=== PATIENT | female | born 1945 | race Caucasian/White ===

== ENCOUNTER 2016-06-06 10:36 | Emergency (ER) | END 2016-06-06 12:56 | disposition home or self-care (01) | DX: R05 Cough (principal); E03.9 Hypothyroidism, unspecified ==

== ENCOUNTER 2017-01-19 22:26 | Emergency (ER) | payer MEDICARE, OTHER ==
[~2017-01-19] VITALS: Wt 58.0 kg
[~2017-01-19 22:26] MED LIST: ACET1TAB40 PO; AMP500 PO; ASPI-664 PO; ATEN-51 PO; ATOR10TA65 PO; BENZ100C70 PO; D-ME473S18 PO; IBUP800T25 PO; LEVO50TA74 PO; LINA145C PO; OMEP20CA16 PO
[2017-01-19 22:37] VITALS: Wt 58.0 kg
--- NOTE | 2017-01-19 23:27 | ERA ---
ER Documentation Chief Complaint Date/Time DATE: 01/19/17 TIME: 23:26 Chief Complaint Reflux HPI The patient is a 71-year-old female, presenting complaining of gastroesophageal reflux disease. She is taking omeprazole with some response however it is worse tonight. She had similar symptoms previously, denies fever, chills, cough , chest pain, dyspnea, abdominal pain, vomiting, dysuria. She does not smoke nor drink Past medical history: Hypertension, dyslipidemia, hypothyroidism, TIA, GERD Past surgical history: Hysterectomy, carpal tunnel surgery, 2 ROS All systems reviewed and are negative except as per history of present illness. Medications Home Meds Active Scripts Dextromethorphan Hb-Promethazine Hcl (Promethazine DM Syrup) 473 Ml Syrup, 5 ML PO Q6H Y for COUGH, #4 OZ Prov:SIDNEY BARKLEY PA-C 06/06/16 Benzonatate* (Tessalon Perle*) 100 Mg Capsule, 100 MG PO TID, #30 CAP Prov:SIDNEY BARKLEY PA-C 06/06/16 Reported Medications Ampicillin* (Ampicillin*) 500 Mg Cap, 500 MG PO Q6, CAP STARTED 12/07/15 FOR 10 DAYS 12/14/15 Atenolol* (Atenolol*) 25 Mg Tablet, 25 MG PO DAILY, #30 TAB 12/14/15 Ibuprofen* (Motrin*) 800 Mg Tab, 800 MG PO TID, TAB 12/14/15 Linaclotide (LINZESS) 145 Mcg Capsule, 145 MCG PO DAILY, #30 CAP 12/14/15 Atorvastatin Calcium (Atorvastatin Calcium) 10 Mg Tablet, 10 MG PO QHS, #30 TAB 12/14/15 Acetaminophen-Codeine* (Acetaminophen-Cod #3*) 300-30 Mg Tab, 1 TAB PO Q6 Y for PAIN, #30 TAB 12/14/15 Omeprazole* (Omeprazole*) 20 Mg Capsule.dr, 20 MG PO DAILY, CAP 02/10/15 Levothyroxine Sodium* (Levothyroxine Sodium*) 50 Mcg Tablet, 50 MCG PO AC BREAKFAST, TAB 02/10/15 Aspirin* (Aspirin* EC) 81 Mg Tablet.dr, 81 MG PO DAILY, TAB 02/10/15 Allergies Allergies: Coded Allergies: No Known Allergy (Verified , 06/06/16) PMhx/Soc History of Surgery: Yes (hysterectomy 10/2015, carpal tunnel surgery, left cataract removal ) Anesthesia Reaction: No Hx Neurological Disorder: No Hx Respiratory Disorders: No Hx Cardiac Disorders: No Hx Psychiatric Problems: No Hx Miscellaneous Medical Probl: Yes (HYPERLIPIDEMIA, hypothyroid, TIA) Hx Alcohol Use: No Hx Substance Use: No Hx Tobacco Use: No Physical Exam Vitals Vital Signs Date Time Temp Pulse Resp B/P Pulse Ox O2 Delivery O2 Flow Rate FiO2 01/19/17 23:43 98.2 94 16 130/81 98 Room Air 01/19/17 22:37 97.7 67 20 136/73 98 Physical Exam Const: No acute distress. Head: Atraumatic. Eyes: Normal Conjunctiva. ENT: Normal External Ears, Nose and Mouth. Neck: Full range of motion. No meningismus. Resp: Clear to auscultation bilaterally. Cardio: Regular rate and rhythm. Abd: Soft, non distended, normal bowel sounds, non tender. Skin: No petechiae or rashes. Back: No midline or flank tenderness. Ext: No cyanosis, or edema. Neur: Awake and alert. No focal deficit Psych: Normal Mood and Affect. Procedures/MDM EKG: Read by emergency physician Rate/Rhythm: Sinus tachycardia at 102 beats/min QRS, ST, T-waves: No ST elevation, no T inversion Impression: Abnormal EKG MEDICAL MAKING DECISION: The patient is a 71-year-old female, presenting with chronic GERD. She denies any chest pain or dyspnea., she was advised to increase her omeprazole to twice a day for 1 week The differential diagnoses considered include but are not limited to acute coronary syndrome, acute myocardial infarction, pericarditis, pulmonary embolism , aortic dissection, pneumonia, pleural effusion, pneumothorax, GERD, chest wall pain. Departure Diagnosis: Primary Impression: GERD (gastroesophageal reflux disease) Condition: Good Comments I discussed the findings with the patient. I advised the patient to follow-up with the primary physician in about 1-2 days, sooner if needed and return if any concern. ROSAS HERNANDEZ MD Jan 19, 2017 23:27
[2017-01-19 23:43] VITALS: BP 130/81; PULSE 94; RESP 16; TEMP 98.2
== END 2017-01-19 23:52 | disposition home or self-care (01) ==
LOC: E/R 22:26
DX: K21.9 Gastro-esophageal reflux disease without esophagitis (principal); I10 Essential (primary) hypertension; E03.9 Hypothyroidism, unspecified; R40.2142 Coma scale, eyes open, spontaneous, at arrival to emergency department; R40.2362 Coma scale, best motor response, obeys commands, at arrival to emergency department; Z79.82 Long term (current) use of aspirin
CPT/HCPCS: 93005; 99282

== ENCOUNTER 2017-03-30 14:14 | Emergency (ER) | payer MEDICARE, OTHER ==
[~2017-03-30] VITALS: Ht 152.4 cm; Wt 57.3 kg
[~2017-03-30 14:14] MED LIST changes: -AMP500 PO; +AMPI500C9 PO
[2017-03-30 14:24] VITALS: Ht 152.4 cm; Wt 57.3 kg
--- NOTE | 2017-03-30 15:23 | ERD ---
ER Documentation Chief Complaint Chief Complaint Complains of a severe headache x 3 days HPI 71-year-old complains of headache 2-3 days with, cough, nasal congestion, chest congestion, dizziness and generalized weakness. She denies abdominal pain , no chest pain or shortness of breath, no weakness in her arms or legs, no slurred speech, no vomiting or diarrhea. Patient denies dysuria. ROS All systems reviewed and are negative except as per history of present illness. Medications Home Meds Active Scripts Naproxen* (Naprosyn*) 500 Mg Tablet, 500 MG PO BID Y for PAIN AND/OR INFLAMMATION, #30 TAB Prov:GENARO SPICER MD 03/30/17 Albuterol Sulfate* (Proair HFA*) 8.5 Gm Hfa.aer.ad, 2 PUFF INH Q6H Y for COUGH, #1 INHALER Prov:GENARO SPICER MD 03/30/17 Dextromethorphan Hb-Promethazine Hcl (Promethazine DM Syrup) 473 Ml Syrup, 5 ML PO Q6H Y for COUGH, #4 OZ Prov:SIDNEY BARKLEY PA-C 06/06/16 Benzonatate* (Tessalon Perle*) 100 Mg Capsule, 100 MG PO TID, #30 CAP Prov:SIDNEY BARKLEY PA-C 06/06/16 Reported Medications Ampicillin* (Ampicillin*) 500 Mg Cap, 500 MG PO Q6, CAP STARTED 12/07/15 FOR 10 DAYS 12/14/15 Atenolol* (Atenolol*) 25 Mg Tablet, 25 MG PO DAILY, #30 TAB 12/14/15 Ibuprofen* (Motrin*) 800 Mg Tab, 800 MG PO TID, TAB 12/14/15 Linaclotide (LINZESS) 145 Mcg Capsule, 145 MCG PO DAILY, #30 CAP 12/14/15 Atorvastatin Calcium (Atorvastatin Calcium) 10 Mg Tablet, 10 MG PO QHS, #30 TAB 12/14/15 Acetaminophen-Codeine* (Acetaminophen-Cod #3*) 300-30 Mg Tab, 1 TAB PO Q6 Y for PAIN, #30 TAB 12/14/15 Omeprazole* (Omeprazole*) 20 Mg Capsule.dr, 20 MG PO DAILY, CAP 02/10/15 Levothyroxine Sodium* (Levothyroxine Sodium*) 50 Mcg Tablet, 50 MCG PO AC BREAKFAST, TAB 02/10/15 Aspirin* (Aspirin* EC) 81 Mg Tablet.dr, 81 MG PO DAILY, TAB 02/10/15 Allergies Allergies: Coded Allergies: No Known Allergy (Verified , 06/06/16) PMhx/Soc Hypertension, dyslipidemia, hypothyroidism, TIA, GERD History of Surgery: Yes (hysterectomy 10/2015, carpal tunnel surgery, left cataract removal ) Anesthesia Reaction: No Hx Neurological Disorder: No Hx Respiratory Disorders: No Hx Cardiac Disorders: No Hx Psychiatric Problems: No Hx Miscellaneous Medical Probl: Yes (HYPERLIPIDEMIA, hypothyroid, TIA) Hx Alcohol Use: No Hx Substance Use: No Hx Tobacco Use: No FmHx Family History: No diabetes Physical Exam Vitals Vital Signs Date Time Temp Pulse Resp B/P Pulse Ox O2 Delivery O2 Flow Rate FiO2 03/30/17 14:24 99.3 96 20 133/80 97 Physical Exam GENERAL: Well-developed, well-nourished, well-hydrated, in no apparent distress , looks nontoxic in appearance HEENT: Moist mucous membranes, pink conjunctiva, no cervical spine tenderness or step-off deformities, no goiter, no jaundice or icterus, extraocular movements intact without pain. No submandibular induration, and no pharyngeal erythema NEURO: Alert and oriented 3, cranial nerves II through XII intact bilaterally, pupils equal round reactive to light, no focal deficits or facial asymmetry, sensation intact distally Strength 5/5 in upper and lower extremities bilaterally CARDIAC: Regular rate and rhythm, no murmurs rubs or gallops LUNGS: Clear bilaterally no wheezing crackles or stridor ABDOMEN: Soft nontender, no guarding, no rigidity, no rebound, no psoas sign no obturator sign. Normoactive bowel sounds SKIN: Warm and dry to touch, no abrasions, contusions, or hematomas, no lacerations, no ecchymosis, no target lesions, and without ulcers EXTREMITIES: No clubbing cyanosis or edema, calves are bilaterally symmetrical, no Homans sign, no popliteal cord sign. Distal pulses equal and bilateral PSYCH: Normal affect without agitation or irritability Result Diagram: 03/30/17 1545 03/30/17 1545 Results 24 hrs Laboratory Tests Test 03/30/17 15:40 03/30/17 15:45 Urine Color YELLOW Urine Clarity CLEAR Urine pH 6.0 Urine Specific [place] 1.015 Urine Ketones NEGATIVEmg/dL Urine Nitrite NEGATIVEmg/dL Urine Bilirubin NEGATIVEmg/dL Urine Urobilinogen NEGATIVEmg/dL Urine Leukocyte Esterase NEGATIVELeu/ul Urine Microscopic RBC 5/HPF Urine Microscopic WBC 0/HPF Urine Squamous Epithelial Cells FEW/HPF Urine Bacteria FEW/HPF Urine Mucus FEW/HPF Urine Hemoglobin 2+mg/dL Urine Glucose NEGATIVEmg/dL Urine Total Protein NEGATIVEmg/dl White Blood Count 4.810^3/ul Red Blood Count 4.4510^6/ul Hemoglobin 13.1g/dl Hematocrit 40.8% Mean Corpuscular Volume 91.7fl Mean Corpuscular Hemoglobin 29.4pg Mean Corpuscular Hemoglobin Concent 32.1g/dl Red Cell Distribution Width 13.1% Platelet Count 92129^3/UL Mean Platelet Volume 11.3fl Neutrophils % 56.5% Lymphocytes % 25.8% Monocytes % 15.9% Eosinophils % 1.4% Basophils % 0.4% Nucleated Red Blood Cells % 0.0/100WBC Neutrophils # 2.710^3/ul Lymphocytes # 1.310^3/ul Monocytes # 0.810^3/ul Eosinophils # 0.110^3/ul Basophils # 0.010^3/ul Nucleated Red Blood Cells # 0.010^3/ul Sodium Level 146mmol/L Potassium Level 4.0mmol/L Chloride Level 107mmol/L Carbon Dioxide Level 26mmol/L Anion Gap 17 Blood Urea Nitrogen 13mg/dl Creatinine 0.69mg/dl Glucose Level 98mg/dl Calcium Level 8.9mg/dl Total Bilirubin 0.1mg/dl Direct Bilirubin 0.00mg/dl Indirect Bilirubin 0.1mg/dl Aspartate Amino Transf (AST/SGOT) 27IU/L Alanine Aminotransferase (ALT/SGPT) 35IU/L Alkaline Phosphatase 82IU/L Troponin I < 0.012ng/ml Total Protein 7.5g/dl Albumin 4.2g/dl Globulin 3.30g/dl Albumin/Globulin Ratio 1.27 Lipase 111U/L Current Medications Medications (Trade) Dose Ordered Sig/Roberto Route PRN Reason Start Time Stop Time Status Last Admin Dose Admin Sodium Chloride (NS) 1,000 ml @ 1,000 mls/hr Q1H STAT IV 03/30/17 15:31 03/30/17 16:30 DC 03/30/17 15:47 Ondansetron HCl (Zofran Inj) 4 mg ONCE STAT IV 03/30/17 15:31 03/30/17 15:33 DC 03/30/17 15:47 Ketorolac Tromethamine (Toradol) 15 mg ONCE STAT IV 03/30/17 15:31 03/30/17 15:33 DC 03/30/17 15:47 Procedures/MDM IV line was established patient was placed on conveyor monitor rhythm strip revealed a sinus rhythm at about 90 bpm with upright P and T waves. Patient was afebrile EKG performed, read by me: 90 bpm, normal sinus rhythm, normal axis, no acute ST segment changes, narrow QRS complex, with good R-wave progression in precordial leads. Chest X-ray 1V Interpreted by me: Soft Tissue: No acute abnormalities Bones: No acute abnormalities Mediastinum/Cardiac Silhouette/Lungs: No acute abnormalities CBC and electrolytes are normal, liver function tests were normal, troponin was negative. Urinalysis was negative for infection. I administered 1 L normal saline intravenously, Zofran 4 mg IV, and Toradol 15 mg IV 1. Differential diagnoses considered, included but not limited to acute coronary syndrome, pulmonary embolism, aortic dissection, abdominal aortic aneurysm, sepsis, stroke, meningitis, encephalitis, pneumonia, appendicitis, cholecystitis , bowel obstruction, pyelonephritis, nephrolithiasis, cystitis, as well as metabolic, hematologic, and electrolyte abnormalities. As well as abscess, cellulitis, fractures, and dislocations. Patient feels much better at this time, and vital signs are normal, symptoms have improved. I did give strict instructions to return to the ED if symptoms continue or worsen, patient will otherwise follow-up with primary care physician. Patient understood instructions and agreed to plan. Disclaimer: Inadvertent spelling and grammatical errors are likely due to EHR/ dictation software use and do not reflect on the overall quality of patient care. Also, please note that the electronic time recorded on this note does not necessarily reflect the actual time of the patient encounter. Departure Diagnosis: Primary Impression: Headache Headache type: tension-type Headache chronicity pattern: acute headache Intractability: not intractable Qualified Code: G44.209 - Acute non intractable tension-type headache Additional Impression: URI (upper respiratory infection) URI type: acute nasopharyngitis (common cold) Qualified Code: J00 - Acute nasopharyngitis Condition: GENARO Sánchez MD Mar 30, 2017 15:23
[2017-03-30] MEDS ORDERED: KETOROLAC 15 MG INJ IV STA (15:31)
[2017-03-30] MEDS ORDERED: SOD CHLORIDE 0.9% 1,000 ML IV STA (15:31)
[2017-03-30] MEDS ORDERED: ONDANSETRON 4 MG INJ IV STA (15:31)
[2017-03-30 16:08] LABS: WHITE BLOOD COUNT 4.8 10^3/ul (4.8-10.8)
[2017-03-30 16:09] LABS: BASOPHILS % 0.4 % (0.0-2.0); EOSINOPHILS # 0.1 10^3/ul (0.0-0.5); EOSINOPHILS % 1.4 % (0.0-7.0); HEMATOCRIT 40.8 % (37.0-47.0); HEMOGLOBIN 13.1 g/dl (12.0-16.0); LYMPHOCYTES # 1.3 10^3/ul (0.8-2.9); LYMPHOCYTES % 25.8 % (15.0-51.0); MEAN CORPUSCULAR HEMOGLOBIN 29.4 pg (29.0-33.0); MEAN CORPUSCULAR HGB CONC 32.1 g/dl (32.0-37.0); MEAN CORPUSCULAR VOLUME 91.7 fl (82.0-101.0); MEAN PLATELET VOLUME 11.3 fl (7.4-10.4); MONOCYTE # 0.8 10^3/ul (0.3-0.9); MONOCYTES % 15.9 % (0.0-11.0); NEUTROPHIL # 2.7 10^3/ul (1.6-7.5); NEUTROPHILS % 56.5 % (39.0-77.0); PLATELET COUNT 230 10^3/UL (140-415); RED BLOOD COUNT 4.45 10^6/ul (4.20-5.40); RED CELL DISTRIBUTION WIDTH 13.1 % (11.5-14.5)
--- NOTE | 2017-03-30 16:11 | RADRPT ---
PROCEDURE: CHEST X-RAY CLINICAL INDICATION: Abdominal pain TECHNIQUE: Semi erect portable one-view COMPARISON: 06/06/2016 FINDINGS: Heart size and pulmonary vascularity appears unremarkable. 3 mm nodule left lower lung field unchang ed. No focal infiltrates, pneumothorax or pleural effusion seen.. IMPRESSION: No change from prior exam. RPTAT: AA[facility] Physician Trudi Date Time Electronically viewed and signed by Gen Schulz Physician on 03/30/2017 16:11 MB/
[2017-03-30 16:15] LABS: ADD UMIC YES; UR ASCORBIC ACID NEGATIVE (NEGATIVE); UR BACTERIA FEW /HPF (NONE SEEN); UR BILIRUBIN (Dip) NEGATIVE (NEGATIVE); UR BLOOD (Dip) 2+ mg/dL (NEGATIVE); UR CLARITY CLEAR (CLEAR); UR COLOR YELLOW (YELLOW); UR GLUCOSE (Dip) NEGATIVE (NEGATIVE); UR KETONES (Dip) NEGATIVE (NEGATIVE); UR LEUKOCYTE ESTERASE (Dip) NEGATIVE Leu/ul (NEGATIVE); UR MUCUS FEW /HPF (NONE SEEN); UR NITRITE (Dip) NEGATIVE (NEGATIVE); UR RBC 5 /HPF (0-5); UR SPECIFIC GRAVITY (Dip) 1.015 (1.003-1.030); UR SQUAMOUS EPITHELIAL CELL FEW /HPF (FEW); UR TOTAL PROTEIN (Dip) NEGATIVE (NEGATIVE); UR UROBILINOGEN (Dip) NEGATIVE (NEGATIVE)
[2017-03-30 16:33] LABS: ALANINE AMINOTRANSFERASE 35 IU/L (13-69); ALBUMIN 4.2 g/dl (3.3-4.9); ALBUMIN/GLOBULIN RATIO 1.27; ALKALINE PHOSPHATASE 82 IU/L (42-121); ANION GAP 17 (8-16); ASPARTATE AMINO TRANSFERASE 27 IU/L (15-46); BILIRUBIN,INDIRECT 0.1 mg/dl (0-1.1); BILIRUBIN,TOTAL 0.1 mg/dl (0.2-1.3); BLOOD UREA NITROGEN 13 mg/dl (7-20); CALCIUM 8.9 mg/dl (8.4-10.2); CARBON DIOXIDE 26 mmol/L (21-31); CHLORIDE 107 mmol/L (97-110); CREATININE 0.69 mg/dl (0.44-1.00); GLUCOSE 98 mg/dl (70-220); SODIUM 146 mmol/L (135-144); TOTAL PROTEIN 7.5 g/dl (6.1-8.1)
[2017-03-30 16:49] LABS: TROPONIN-I < 0.012 ng/ml (0.00-0.12)
[2017-03-30] MEDS ORDERED: ALBU8.5H3 INH (17:16)
[2017-03-30] MEDS ORDERED: NAPR-260 PO (17:16)
== END 2017-03-30 18:29 | disposition home or self-care (01) ==
LOC: E/R 14:14
DX: G44.209 Tension-type headache, unspecified, not intractable (principal); R40.2252 Coma scale, best verbal response, oriented, at arrival to emergency department; J00 Acute nasopharyngitis [common cold]; E03.9 Hypothyroidism, unspecified; I10 Essential (primary) hypertension; R40.2142 Coma scale, eyes open, spontaneous, at arrival to emergency department; R40.2362 Coma scale, best motor response, obeys commands, at arrival to emergency department; Z79.82 Long term (current) use of aspirin
CPT/HCPCS: 36415; 71010; 80053; 81001; 83690; 84484; 85025; 87400; 96374; 96375; 99285; J1885; J2405; J7030; P9612; 93005

== ENCOUNTER 2017-06-04 10:13 | Emergency (ER) | END 2017-06-04 15:35 | disposition home or self-care (01) ==

== ENCOUNTER 2017-06-05 08:38 | Emergency (ER) | END 2017-06-05 17:41 | disposition left against medical advice (07) ==

== ENCOUNTER 2017-07-30 12:16 | Emergency (ER) | END 2017-07-30 18:28 | disposition home or self-care (01) ==

== ENCOUNTER 2017-10-13 15:08 | Emergency (ER) | END 2017-10-13 21:30 | disposition home or self-care (01) ==